=== PATIENT | female | born 1970 | race Caucasian/White ===

== ENCOUNTER 2017-08-05 14:49 | Outpatient (CLI) ==
[2015-04-04 16:34] VITALS: BMI 44.9
--- NOTE | 2017-08-05 15:53 | CT ---
EXAM: CT abdomen pelvis with contrast HISTORY: Upper abdominal pain COMPARISON: None TECHNIQUE: CT abdomen pelvis performed with intravenous contrast. Coronal and sagittal reformatted images obtained. FINDINGS: Mild bibasilar atelectasis. No free air. No acute abnormalities of the bones. Degenerat clifford change in the spine. Heart normal in size. Asymmetric tissue in the incompletely imaged right b reast, image 1. Liver appears normal. Gallbladder appears normal. Pancreas appears normal. Spleen appears normal. Adrenals appear normal. A small indeterminate exophytic nodule arises from the lef t superior kidney measuring 0.8 cm on image 29. No hydronephrosis. Uterus unremarkable. Bilateral essure device. No lymphadenopathy or ascites. Postsurgical changes of gastric sleeve surgery. No d ilated loops small bowel. Appendix appears normal. Colon unremarkable. Small fat-containing perium bilical hernia. IMPRESSION: 1. No acute abnormality identified in the abdomen or pelvis. 2. Postsurgical changes of gastric sleeve surgery. 3. Sub centimeter exophytic nodule arising from the left superior kidney, indeterminate. Recommend correlation with ultrasound 4. Asymmetric tissue right breast. Recommend correlation with bilateral mammogram.
== END 2017-08-05 14:50 | disposition home or self-care (01) ==
LOC: RAD 14:49
PROVIDERS: ATTEND Family Medicine
DX: R10.10 Upper abdominal pain, unspecified (principal); R11.0 Nausea